=== PATIENT | female | born 1990 | race Caucasian/White ===

== ENCOUNTER 2018-03-05 14:36 | Emergency (ER) | payer SELFPAY ==
[~2018-03-05] VITALS: Ht 160 cm; Wt 56.7 kg
[2018-03-05 14:40] VITALS: Ht 160 cm; Wt 56.7 kg
[2018-03-05 17:22] LABS: microscopic required? YES; urine erythrocyte NEGATIVE (NEGATIVE)
[2018-03-05 18:50] VITALS: BP 117/68
== END 2018-03-05 18:53 | disposition home or self-care (01) ==
LOC: ED 14:36
PROVIDERS: Emergency Medicine
DX: O26.891 Other specified pregnancy related conditions, first trimester (principal); R10.2 Pelvic and perineal pain; Z3A.01 Less than 8 weeks gestation of pregnancy